=== PATIENT | male | born 1950 | race Caucasian/White ===

== ENCOUNTER 2018-11-20 14:20 | Inpatient (IN) | payer OTHER ==
[~2018-11-20] VITALS: Ht 177.8 cm; Wt 91.0 kg
[~2018-11-20 14:20] MED LIST: ACET-458 PO; ASPI1TAB31 PO; ASPI500T16 PO; EPINEPHRINE 1 MG/ML, 1ML ONE; HYDR-3240 PO; KETOROLAC 60 MG/2 ML ONE; LISI-170 PO; MELO7.5T31 PO; ROLAIDS PO; ROPIvacaine/PF 0.5%, 30 ML ONE; SODIUM CHLORIDE 0.9% 100 ML ONE; TAMS-11 PO; TRANEXAMIC ACID 100 MG/ML, 10ML ONE; TUMS PO; VANCOMYCIN 1,000 MG ONE
[2018-11-20] MEDS ORDERED: LACTATED RINGERS 1,000 ML IV SCH (14:54)
[2018-11-20] MEDS ORDERED: MIDAZOLAM 1 MG/ML, 2ML ONE (15:25)
[2018-11-20] MEDS ORDERED: FENTANYL PF 250 MCG/5ML ONE (15:25)
[2018-11-20] MEDS ORDERED: ACETAMINOPHEN 500 MG TABLET ONE (15:55)
[2018-11-20] MEDS ORDERED: GABAPENTIN 300 MG CAPSULE ONE (15:55)
[2018-11-20] MEDS ORDERED: GABAPENTIN 300 MG CAPSULE PO ONE (16:00)
[2018-11-20] MEDS ORDERED: ACETAMINOPHEN 500 MG TABLET PO ONE (16:00)
[2018-11-20] MEDS ORDERED: CEFAZOLIN 1,000 MG ONE ×2 (16:20)
[2018-11-20] MEDS ORDERED: DEXAMETHASONE 4 MG/ML, 1ML ONE ×2 (16:21→17:04)
[2018-11-20] MEDS ORDERED: ROCURONIUM 10MG/ML,5ML ONE (17:04)
[2018-11-20] MEDS ORDERED: PROPOFOL 10 MG/ML, 20ML ONE (17:04)
[2018-11-20] MEDS ORDERED: ONDANSETRON 2MG/ML, 2ML ONE (17:04)
[2018-11-20] MEDS ORDERED: MORPHINE SULFATE 4 MG/ML, 1ML ONE (17:17)
[2018-11-20] MEDS ORDERED: ACETAMINOPHEN 650 MG/20.3 ML UDC PO PRN (17:30)
[2018-11-20] MEDS ORDERED: DIPHENHYDRAMINE 50 MG CAPSULE PO PRN (17:30)
[2018-11-20] MEDS ORDERED: SENNA/DOCUSATE TABLET PO PRN (17:30)
[2018-11-20] MEDS ORDERED: SCOPOLAMINE PATCH, 1.5MG PATCH.TD72 TD ONE (17:30)
[2018-11-20] MEDS ORDERED: ZOLPIDEM 5MG TABLET PO PRN (17:30)
[2018-11-20] MEDS ORDERED: ONDANSETRON 2MG/ML, 2ML IV PRN (17:30)
[2018-11-20] MEDS ORDERED: OXYcodone IR 5MG TABLET PO PRN (17:30)
[2018-11-20] MEDS ORDERED: ONDANSETRON 4 MG TABLET PO PRN (17:30)
[2018-11-20] MEDS ORDERED: MAGNESIUM HYDROXIDE 8%, 30ML UDC PO PRN (17:30)
[2018-11-20] MEDS ORDERED: HYDROcodone/APAP 5/325 TABLET PO PRN (17:30)
[2018-11-20] MEDS ORDERED: BISACODYL 10 MG SUPP PR PRN (17:30)
[2018-11-20] MEDS ORDERED: OXYcodone 5 MG/5 ML ORAL.SOL UDC ONE (17:41)
[2018-11-20] MEDS ORDERED: HYDROmorphone 2 MG/ML, 1ML ONE (17:41)
[2018-11-20] MEDS ORDERED: FENTANYL PF 100 MCG/2ML ONE (17:41)
[2018-11-20] MEDS: FENTANYL PF 100 MCG/2ML IV PRN ×2 (17:45→17:55)
[2018-11-20] MEDS: HYDROmorphone 1 MG/ML, 1ML IV PRN ×4 (17:50→18:30)
[2018-11-20] MEDS ORDERED: OXYcodone 5 MG/5 ML ORAL.SOL UDC PO PRN (18:00)
[2018-11-20] MEDS ORDERED: MEPERIDINE/PF 25MG/ML,1ML ONE (18:07)
[2018-11-20] MEDS ORDERED: MEPERIDINE/PF 25MG/0.5ML IVPush PRN (18:30)
[2018-11-20] MEDS: NS + 20MEQ KCL 1,000 ML IV SCH (20:08)
[2018-11-20] MEDS: DOCUSATE 100 MG CAPSULE PO SCH (20:08)
[2018-11-20] MEDS: HYDROcodone/APAP 5/325 TABLET PO PRN (20:08)
[2018-11-20 20:45] VITALS: BP 116/74
[2018-11-20] MEDS: ASPIRIN 81 MG TABLET EC PO SCH (22:20)
[2018-11-20 23:53] VITALS: BP 99/67
[2018-11-21] MEDS: HYDROcodone/APAP 5/325 TABLET PO PRN ×4 (00:14→08:49)
[2018-11-21] MEDS: CEFAZOLIN PMX 2GM/50ML 50 ML IVPB SCH ×2 (00:14→07:39)
[2018-11-21 03:51] VITALS: BP 100/62
[2018-11-21] MEDS: ASPIRIN 81 MG TABLET EC PO SCH (05:53)
[2018-11-21] MEDS: NS + 20MEQ KCL 1,000 ML IV SCH (05:53)
[2018-11-21] MEDS ORDERED: DEXAMETHASONE 4 MG/ML, 1ML IVPush SCH (06:00)
[2018-11-21] MEDS: DOCUSATE 100 MG CAPSULE PO SCH (07:38)
[2018-11-21 08:04] VITALS: BP 110/70
[2018-11-21] MEDS ORDERED: TAMSULOSIN 0.4 MG CAP.ER.24H PO SCH (09:00)
[2018-11-21] MEDS ORDERED: LISINOPRIL 20 MG TABLET PO SCH (09:00)
[2018-11-21] MEDS ORDERED: TRAM50TA2 PO (10:38)
[2018-11-21] MEDS ORDERED: LORTAB PO (10:38)
[2018-11-21] MEDS ORDERED: MELO7.5T5 PO (10:39)
== END 2018-11-21 10:52 | disposition home or self-care (01) | DRG 469 ==
LOC: OR 14:20 → ORIP 17:27 → 4NOR 19:00 → DCLOUNGE 11-21 10:35
PROVIDERS: ADMIT Orthopaedic Surgery; ATTEND Orthopaedic Surgery
PROC: 3E0T3BZ Introduction of Anesthetic Agent into Peripheral Nerves and Plexi, Percutaneous Approach (ICD-10-PCS; 2018-11-20)
PROC: 0SRD069 Replacement of Left Knee Joint with Oxidized Zirconium on Polyethylene Synthetic Substitute, Cemented, Open Approach (ICD-10-PCS; principal; 2018-11-20 16:00)
DX: M17.12 Unilateral primary osteoarthritis, left knee (principal); R53.2 Functional quadriplegia; Z88.2 Allergy status to sulfonamides
CPT/HCPCS: 36415; 85014; 85018; C1713; G0378; J0171; J0690; J1100; J1170; J1885; J2175; J2250; J2405; J2704; J2795; J3010; J3370; J3480; C1776; J7120